=== PATIENT | male | born 1990 | race African-American/Black ===

== ENCOUNTER 2022-07-22 17:05 | Emergency (ER) | payer OTHER ==
[2022-07-22] MEDS ORDERED: Ketorolac Tromethamine 30 MG/ML VIAL ONE (17:32)
== END 2022-07-22 18:33 | disposition home or self-care (01) ==
LOC: CSHERS 17:05
DX: M25.572 Pain in left ankle and joints of left foot (principal)
CPT/HCPCS: 96372; J1885